=== PATIENT | female | born 1965 | race Hispanic/Latino ===

== ENCOUNTER 2017-01-12 07:24 | Day surgery (SDC) | payer MEDICARE ==
--- NOTE | 2017-01-12 08:34 | Anesthesia Consultation ---
Anesthesia Consult and Med Hx Date of service: 01/12/17 - Airway Anesthetic Teeth Evaluation: Good ROM Head & Neck: Adequate Mental/Hyoid Distance: Adequate Mallampati Class: Class II Intubation Access Assessment: Probably Good - Pulmonary Exam CTA: Yes - Cardiac Exam Cardiac Exam: RRR - Pre-Operative Health Status ASA Pre-Surgery Classification: ASA3 Proposed Anesthetic Plan: MAC - Cardiovascular System Hx Hypertension: Yes - Central Nervous System CVA: No (Cerebral aneurysm clipping) - Gastrointestinal Hx Gastroesophageal Reflux Disease: Yes (food related, no symptoms at present) - Endocrine Hx Renal Disease: Yes (R nephrectomy for cancer) - Other Systems Hx Obesity: Yes (morbid)
--- NOTE | 2017-01-12 08:34 | Anesthesia Day of Surgery ---
Anesthesia Day of Surgery - Day of Surgery Patient Examined: Yes Patient H&P Reviewed: Yes Patient is NPO: Yes
[2017-01-12] MEDS ORDERED: WATER FOR IRRIG STERILE IR ONE (08:48)
[2017-01-12] MEDS ORDERED: NACL 0.9% 1000 ML 1,000 ML IV SCH (09:00)
[2017-01-12] MEDS ORDERED: DIPRIVAN 10 MG/ML IV ONE ×2 (10:35→10:36)
--- NOTE | 2017-01-12 10:42 | Discharge Summary ---
Providers - Providers Date of discharge: 01/12/17 Attending physician: NIHARIKA MORGAN Hospitalization Condition: Good Procedures: egd Disposition: DC-01 TO HOME OR SELFCARE Core Measure Documentation - Palliative Care Palliative Care/ Comfort Measures: Not Applicable - Core Measures Any of the following diagnoses?: none Exam - Physical Exam Narrative exam: unchanged from pre-op exam - Constitutional Vitals: Temp Pulse Resp BP Pulse Ox 97.7 F 71 12 156/98 97 01/12/17 08:51 01/12/17 08:51 01/12/17 08:51 01/12/17 08:51 01/12/17 08:51 Plan Activity: no restrictions Weight Bearing Status: Weight Bear as Tolerated Diet: regular
--- NOTE | 2017-01-12 10:43 | Operative Report ---
Operative Report Operative Report: OPERATIVE REPORT - EGD DATE 01/12/17 SURGERY: Upper endoscopy. SURGEON: Yesy Mcmillan M.D. PRE OP DX: dyspepsia POST OP DX: hiatal hernia TYPE OF ANESTHESIA: MAC. ESTIMATED BLOOD LOSS: None. COMPLICATIONS: None. SPECIMENS REMOVED: None. FINDINGS: 1. Small hiatal hernia. 2. Otherwise, normal esophagus, stomach and first portion of duodenum. INDICATIONS:INDICATION FOR PROCEDURE: Patient is a 51-year-old female with a long history of morbid obesity. She is planned to have a weight loss procedure and is here for preoperative planning EGD. Also looking for any pathology that can explain her symptoms or be contraindications for bariatric surgery. PROCEDURE DETAILS: After consent was reviewed, patient was taken back to the operating room where patient was placed in the left lateral decubitus position and a bite block was placed in the mouth. After a time-out was called, MAC anesthesia was initiated. I then passed the endoscope into her oropharynx, into her esophagus, visualized the entire esophagus, which was all within normal limits. I then visualized the stomach and the first portion of the duodenum and there were no abnormalities I could clearly visualize. I then retroflexed the scope in the stomach and visualized the hiatus and I could see a small hiatal hernia. I then desufflated the stomach and removed the endoscope. Patient tolerated procedure well and was transferred to recovery room in good and stable condition.
--- NOTE | 2017-01-12 11:03 | Post Anesthesia Evaluation ---
- Post Anesthesia Evaluation Patient Participated: Yes Airway Patent: Yes Stable Respiratory Function: Yes Temp > 96.8F: Yes Pain Manageable: Yes Adequeate Hydration: Yes Anesthesia Complications: No Block Receding Appropriately: Not Applicable
[2017-01-12 11:15] VITALS: BP 124/86
== END 2017-01-12 07:25 | disposition home or self-care (01) ==
LOC: GIO 07:24
PROVIDERS: ATTEND Surgery
DX: K44.9 Diaphragmatic hernia without obstruction or gangrene (principal); I10 Essential (primary) hypertension; K21.9 Gastro-esophageal reflux disease without esophagitis; F31.9 Bipolar disorder, unspecified; E11.9 Type 2 diabetes mellitus without complications; E66.01 Morbid (severe) obesity due to excess calories; Z68.39 Body mass index [BMI] 39.0-39.9, adult; Z90.5 Acquired absence of kidney; Z85.528 Personal history of other malignant neoplasm of kidney; Z90.49 Acquired absence of other specified parts of digestive tract; Z98.890 Other specified postprocedural states; Z79.899 Other long term (current) drug therapy
CPT/HCPCS: 43235; J2704; J7030

== ENCOUNTER 2017-01-16 06:21 | Inpatient (IN) | payer MEDICARE ==
[2017-01-16] MEDS ORDERED: ANCEF/STERILE WATER 2 GM/20 ML 2 GM/20 ML SYRINGE IV NR (09:00)
[2017-01-16] MEDS ORDERED: TRANSDERM-SCOP TD SCH (09:00)
[2017-01-16] MEDS ORDERED: LOVENOX SUB-Q NR (09:00)
[2017-01-16] MEDS ORDERED: FLAGYL 500 MG/100 ML 500 MG/100 ML BAG IV NR (09:00)
[2017-01-16] MEDS ORDERED: REGLAN IV PRN (10:41)
[2017-01-16] MEDS ORDERED: NORCO PO PRN (10:41)
[2017-01-16] MEDS ORDERED: MORPHINE IV PRN (10:41)
[2017-01-16] MEDS ORDERED: APRESOLINE IV PRN (10:41)
[2017-01-16] MEDS ORDERED: ZOFRAN IV PRN ×2 (10:41→11:08)
[2017-01-16] MEDS ORDERED: ANCEF/NS 1 GM/50 ML 1 GM/50 ML BAG IV SCH (11:00)
[2017-01-16 11:02] LABS: Bilirubin,Urine NEG (Negative); Blood,Urine NEG (Negative); Ketones,Urine NEG (Negative); Leukocyte Esterase,Urine NEG (Negative); Mucus,Urine FEW /HPF; Nitrite,Urine NEG (Negative); Protein,Urine <15 mg/dL mg/dL (Negative); Urobilinogen,Urine < 2.0 mg/dL (<2.0)
--- NOTE | 2017-01-16 11:07 | Anesthesia Consultation ---
Anesthesia Consult and Med Hx Date of service: 01/16/17 - Airway Anesthetic Teeth Evaluation: Good, Partials Mental/Hyoid Distance: Adequate Mallampati Class: Class III Intubation Access Assessment: Possibly Difficult - Pulmonary Exam CTA: Yes - Cardiac Exam Cardiac Exam: RRR - Pre-Operative Health Status ASA Pre-Surgery Classification: ASA3 Proposed Anesthetic Plan: General - Pulmonary Hx Sleep Apnea: Yes (cpap) - Cardiovascular System Hx Hypertension: Yes - Central Nervous System CVA: No (Cerebral aneurysm clipping) Hx Psychiatric Problems: Yes - Gastrointestinal Hx Gastroesophageal Reflux Disease: Yes (food related, no symptoms at present) - Endocrine Hx Renal Disease: Yes (R nephrectomy for cancer) - Other Systems Hx Cancer: Yes Hx Obesity: Yes (morbid)
[2017-01-16] MEDS ORDERED: PERCOCET 5/325 PO PRN (11:08)
[2017-01-16] MEDS ORDERED: DILAUDID IV PRN (11:08)
--- NOTE | 2017-01-16 11:08 | Anesthesia Day of Surgery ---
Anesthesia Day of Surgery - Day of Surgery Patient Examined: Yes Patient H&P Reviewed: Yes Patient is NPO: Yes
[2017-01-16 11:42] LABS: Basophils % (Auto) 0.9 % (0.0-1.8); Eosinophils % (Auto) 1.5 % (0.0-4.3); Hematocrit 39.4 % (30.3-42.9); Hemoglobin 13.1 gm/dl (10.1-14.3); Mean Corpuscular HGB Conc 33 % (30-34); Mean Corpuscular Hemoglobin 27 pg (28-32); Mean Corpuscular Volume 82 fl (79-97); Platelet Count 274 K/mm3 (140-440); Red Blood Count 4.84 M/mm3 (3.65-5.03); Red Cell Distribution Width 14.1 % (13.2-15.2); White Blood Count 6.2 K/mm3 (4.5-11.0)
[2017-01-16] MEDS: LACTATED RINGERS 1,000 ML IV SCH ×2 (11:43→20:42)
[2017-01-16] MEDS ORDERED: VERSED IV NR (12:00)
[2017-01-16] MEDS ORDERED: PEPCID PO NR (12:00)
[2017-01-16] MEDS ORDERED: PEPCID IV SCH ×2 (12:00→22:00)
[2017-01-16 12:03] LABS: Calcium 9.5 mg/dL (8.4-10.2); Chloride 98.4 mmol/L (98-107); Potassium 4.2 mmol/L (3.6-5.0)
[2017-01-16] MEDS ORDERED: DILAUDID IV ONE (13:05)
[2017-01-16] MEDS ORDERED: XYLOCAINE 1% 20 mL ONE (13:24)
[2017-01-16] MEDS ORDERED: MARCAINE-EPI/PF 0.5%-1:200,000 INFILTRATI ONE (13:25)
[2017-01-16] MEDS ORDERED: XYLOCAINE 1% 20 mL INFILTRATI ONE (13:46)
[2017-01-16] MEDS ORDERED: MARCAINE-EPI 0.5%-1:200,000 INFILTRATI ONE (13:46)
[2017-01-16] MEDS ORDERED: [UNRECOGNIZED DRUG - OTHER] TP ONE (13:46)
[2017-01-16] MEDS ORDERED: NACL 0.9% IR ONE ×2 (13:46)
[2017-01-16] MEDS ORDERED: SUBLIMAZE ONE (13:51)
[2017-01-16] MEDS ORDERED: XYLOCAINE MPF 2% ONE (13:51)
[2017-01-16] MEDS ORDERED: DIPRIVAN 10 MG/ML IV ONE (13:51)
[2017-01-16] MEDS ORDERED: ZEMURON IV ONE (13:51)
[2017-01-16] MEDS ORDERED: FLAGYL 500 MG/100 ML 500 MG/100 ML BAG IV SCH (14:00)
[2017-01-16] MEDS ORDERED: DECADRON ONE (14:55)
[2017-01-16] MEDS ORDERED: ROBINUL ONE (14:55)
[2017-01-16] MEDS ORDERED: NEOSTIGMINE ONE (14:55)
[2017-01-16] MEDS ORDERED: NEO SYNEPHRINE ONE (14:55)
[2017-01-16] MEDS ORDERED: ZOFRAN ONE (14:55)
[2017-01-16] MEDS ORDERED: NACL 0.9% 100 ML ONE (14:55)
[2017-01-16] MEDS ORDERED: DILAUDID ONE (15:17)
[2017-01-16] MEDS ORDERED: LACTATED RINGERS 1,000 ML ONE (15:24)
[2017-01-16] MEDS: TORADOL IV SCH ×3 (16:08→23:56)
--- NOTE | 2017-01-16 18:37 | Post Anesthesia Evaluation ---
- Post Anesthesia Evaluation Patient Participated: Yes Airway Patent: Yes Stable Respiratory Function: Yes Temp > 96.8F: Yes Pain Manageable: Yes Adequeate Hydration: Yes Anesthesia Complications: No
[2017-01-16] MEDS: ZOLOFT PO SCH (18:41)
[2017-01-16] MEDS: DILAUDID IV PRN (20:40)
[2017-01-16] MEDS: MYLICON PO PRN (20:41)
[2017-01-17] MEDS: DILAUDID IV PRN ×2 (00:01→03:50)
[2017-01-17] MEDS: TORADOL IV SCH ×2 (05:03→12:14)
[2017-01-17 05:09] LABS: Basophils % (Auto) 0.4 % (0.0-1.8); Hematocrit 37.4 % (30.3-42.9); Hemoglobin 12.4 gm/dl (10.1-14.3); Mean Corpuscular HGB Conc 33 % (30-34); Mean Corpuscular Hemoglobin 28 pg (28-32); Mean Corpuscular Volume 83 fl (79-97); Platelet Count 247 K/mm3 (140-440); Red Blood Count 4.48 M/mm3 (3.65-5.03); Red Cell Distribution Width 14.5 % (13.2-15.2); White Blood Count 7.1 K/mm3 (4.5-11.0)
[2017-01-17 05:26] LABS: Albumin 3.7 g/dL (3.9-5); Albumin/Globulin Ratio 1.2 %; Bilirubin,Total 0.3 mg/dL (0.1-1.2); Calcium 8.5 mg/dL (8.4-10.2); Potassium 5.1 mmol/L (3.6-5.0); Total Protein 6.8 g/dL (6.3-8.2)
[2017-01-17] MEDS: LACTATED RINGERS 1,000 ML IV SCH (08:44)
[2017-01-17] MEDS: ZOLOFT PO SCH (09:35)
--- NOTE | 2017-01-17 09:59 | Progress Note ---
Subjective Date of service: 01/17/17 Principal diagnosis: Morbid obesity Interval history: Patient seen POD 1, comfortable, ambulating , satisfied with anesthesia. Objective - Constitutional Vitals: Vital Signs - 12hr 01/17/17 01/17/17 01/17/17 00:00 00:05 04:01 Temperature 98.2 F 98.2 F Pulse Rate 89 89 98 H Respiratory 18 18 Rate Blood Pressure 105/60 Blood Pressure 112/75 [Left] O2 Sat by Pulse 100 92 Oximetry 01/17/17 01/17/17 01/17/17 04:13 04:16 07:04 Temperature 98.5 F 98.5 F Pulse Rate 72 72 86 Respiratory 18 Rate Blood Pressure Blood Pressure 102/57 102/57 [Left] O2 Sat by Pulse 96 96 95 Oximetry 01/17/17 01/17/17 01/17/17 07:47 08:43 09:35 Temperature 98.2 F Pulse Rate 84 66 Respiratory 18 20 Rate Blood Pressure 123/74 Blood Pressure 103/61 [Left] O2 Sat by Pulse 95 Oximetry - Labs CBC & Chem 7: 01/17/17 03:21 01/17/17 03:21 Labs: Abnormal lab results 01/16/17 01/17/17 01/17/17 Range/Units 11:25 03:21 03:21 MCH 27 L (28-32) pg Lymph % (Auto) 35.8 H 9.5 L (13.4-35.0) % Steele % (Auto) 7.4 H (0.0-7.3) % Lymph # 0.7 L (1.2-5.4) K/mm3 Seg Neutrophils % 88.0 H (40.0-70.0) % Potassium 5.1 H D (3.6-5.0) mmol/L Carbon Dioxide 20 L (22-30) mmol/L BUN 20 H (7-17) mg/dL Glucose 117 H (65-100) mg/dL Albumin 3.7 L (3.9-5) g/dL
[2017-01-17] MEDS ORDERED: IMDUR PO SCH (10:00)
[2017-01-17] MEDS ORDERED: LOVENOX SUB-Q SCH (10:00)
[2017-01-17 11:29] VITALS: BP 102/63
[2017-01-17] MEDS: MYLICON PO PRN (12:21)
--- NOTE | 2017-01-17 13:42 | Admit Criteria Form ---
Admission Criteria Documentation: AMBULATORY SURGERY EXCEPTION CRITERIA Ambulatory Surgery Exception Criteria ( Place 'X' for any and all applicable criteria): Surgery or procedure performed on ambulatory basis may require inpatient stay for[A] ANY ONE of the following(1)(2)(3)(4)(5)(6)(7)(8)(9): [X] I. A preoperative situation, condition, or finding that warrants inpatient stay as indicated by ANY ONE of the following: [] a) Inpatient care needed because of severity of a disease or condition rather than the surgery (eg, severe cardiac or respiratory disease, severe infection) (15) (16 ) (17) (18) [] b) Emergent procedure (eg, angioplasty for acute ischemia)(19) [] c) Complex surgical approach or situation as indicated by ANY ONE of the following(3): [] i) Open approach needed instead of usual endoscopic, transcatheter, or other less invasive procedure [] ii) Difficult approach because of previous operation [] iii) Airway monitoring required after open neck procedures(20)(21) [] iv) Large mass requiring unusually extensive dissection [] v) Additional complicating feature requiring inpatient care (eg, drain management)(22(23): [X] d) Major surgery in a pt with high anesthetic risk as indicated by ANY ONE of the following (2)(3)(5)(7)(8): [X] i) ASA risk class III or higher (severe systemic disease impairing function) [D] [] ii) Advanced age (eg, older than 85 years)(14)(24) [] iii) Symptomatic heart failure(25) [] iv) Symptomatic asthma or COPD(8)(21) [] v) Morbid obesity with hemodynamic or respiratory problems(20)( 21)(26)(27) [] vi) Obstructive sleep apnea(20)(21) [] vii) Former premature infants who are younger than 60 weeks [] viii) High risk for severe postoperative abnormalities (eg, severe postoperative hypocalcemia after parathyroidectomy for severe hyperparathyroidism)(27)( 28) [] ix) Unstable angina(25) [] e) Drug-related risk requiring inpatient stay as indicated by ANY ONE of the following(5)(10)(14)(32)(33) [] i) Procedure requires discontinuing drugs or other therapy (eg , antiarrhythmic medication, antiseizure medication), which necessitates inpatient observation or treatment.(18)(31) [] ii) Major surgery and high risk drug use as indicated by ANY ONE of the following: [] 1) Active abuse of cocaine or similar drug [] 2) Monoamine oxidase inhibitor use [] 3) Other drug identified as posing risk [] f) Inadequate outpatient care situation as indicated by ANY ONE of the following(5)(10)(14)(32)(33) [] i) Patient lives remote from medical facility and procedure has urgent complication potential, and temporary nearby residence cannot be arranged [] ii) Patient will have postprocedure incapacitation and inadequate assistance at home, or alternative level of care cannot be arranged. [] iii) Patient will have long general anesthesia or procedure side effect resolution time, and competent person to stay with patient on first postoperative night at home or alternative level of care cannot be arranged. []iv) Other inadequate outpatient situation that cannot be handled by other means [] II. A perioperative event, condition, or finding that warrants inpatient stay as indicated by ANY ONE of the following (1)(2)(3): [] a) Inadequate physiologic recovery: cardiovascular, respiratory, or hemodynamic status not normal or near preoperative baseline(18) [] b) Hemodynamic instability [] c) Patient not alert with near normal or baseline mental status [] d) Temperature not normal or as expected and not appropriate for outpatient treatment of condition [] e) Ambulatory or appropriate activity level status not yet achieved post procedure [E](34)(35)(36) [] f) Operative site not appropriate (eg, unexpected or excessive drainage or bleeding) [] g) Postoperative effects not resolved or adequately managed (eg, significant pain or vomiting not appropriate for outpatient or next level of care)(10)(12) [] h) Complicating features requiring inpatient care as indicated by ANY ONE of the following(37): [] i) Severe complications of procedure (eg, bowel injury, airway compromise, vascular injury,severe hemorrhage) [] ii) Extensive (eg, dissection far beyond usual scope of procedure ) or prolonged (eg, 120 minutes beyond usual) surgery needed requiring inpatient postoperative care [] iii) Conversion to an open or complex procedure that requires inpatient care (eg, open vs laparoscopic cholecystectomy, abdominal vs vaginal hysterectomy)(38) [] iv) Comorbid condition or test result identified during or post procedure that requires inpatient care (7) [] v) Malignant hyperthermia(30) [] vi) Other complicating feature requiring inpatient care(22)(23) Inpatient stay may be needed until ALL of the following are present (1)(2)(3)(4) (5)(6)(10)(14)(33)(40): []a) Physiologic recovery: cardiovascular, respiratory, and hemodynamic status normal or near preoperative baseline []b) Hemodynamic stability []c) Patient alert, with near normal or baseline mental status []d) Temperature appropriate: patient afebrile or temperature appropriate for outpt treatment of condition []e) Activity level appropriate: ambulatory or appropriate activity level post procedure []f) Operative site appropriate as indicated by ALL of the following: []i) Site dry or with expected drainage []ii) Any blood noted is as expected for procedure. []g) Postoperative effects resolved or managed as indicated by ALL of the following: []i) Pain management appropriate for outpatient (or next level of) care(10) []ii) Minimal nausea and vomiting: if present, successfully treated with oral medication(12) []iii) Headache, dizziness, or drowsiness (if present) are mild. []h) Voiding status acceptable as indicated by ANY ONE of the following: []i) Voiding spontaneously []ii) No voiding but instructions given for follow-up in 6 to 8 hours []iii) Urinary catheter in place, and instructions given for follow-up []i) Complicating features requiring inpatient care manageable at a lower level of care(37) []j) Comorbid conditions manageable at a lower level of care(37) The original [employer] content created by [employer] has been revised. The portions of the content which have been revised are identified through the use of italic text or in bold, and [employer] [facility] [employer] has neither reviewed nor approved the modified material. All other unmodified content is copyright [employer]. Please see references footnoted in the original [employer] edition 2016 Admission Criteria Met: Yes
--- NOTE | 2017-01-17 13:50 | Operative Report ---
Operative Report Operative Report: Operative Report DATE OF PROCEDURE: 01/16/17 PREOPERATIVE DIAGNOSES: Morbid obesity, hiatal hernia POSTOPERATIVE DIAGNOSES: 1.same as pre-op SURGEON: Yesy Mcmillan M.D. BLENDER HELPER: Rory Rodriguez CSA PROCEDURE: 1. laparoscopic sleeve gastrectomy 2. laparoscopic hiatal hernia repair ANESTHESIA: General. ESTIMATED BLOOD LOSS: <5 mL. COMPLICATIONS: None. SPECIMEN: Partial gastrectomy. FINDINGS: 1. 3cm hiatal hernia INDICATION FOR PROCEDURE: Patient is a 51 old female with a long history of morbid obesity. She has tried multiple efforts at weight loss without long-term success. She is here today for sleeve gastrectomy. PROCEDURE IN DETAIL: After consent was reviewed, patient was taken back to the operating room, where patient was placed supine on the bed with both arms out. The patient's legs were doubly strapped to the bed. Patient had a foot board in place. Patient had a body warmer placed by anesthesia. Patient was then prepped and draped in normal sterile surgical fashion. After a time-out was called, I made a stab incision in the umbilicus and placed a Veress needle through this incision and insufflated the abdomen to 18 mmHg pressure. I then counted down a handsbreadth below the xiphoid process in the midline and slightly left lateral injected local anesthetic and made about 1.5 cm transverse incision. I then used a 5-mm Optiview trocar to enter into the abdomen. I then placed a 45- degree scope through this port and inspected the abdomen. There was no injury on entry of the abdomen. I then placed two 5-mm ports in the right upper quadrant, one along the anterior axillary line and 1 subxiphoid below the costovertebral angle. I then placed a 15-mm port about a handsbreadth left lateral and inferior to my anterior axillary port. I then placed left upper quadrant port along the anterior axillary line in a similar fashion. I then placed the liver retractor through the subxiphoid port and placed the patient in full reverse Trendelenburg. The right and left crura were skeletonized accentuating a 3cm hiatal hernia. The gastro-esophageal junction and 1-2 cm of proximal stomach were above the level of diaphragm. An anterior cruraplasty was perfromed with two figure-of-8 stitch using surgidac suture to reapproximate the crura, after the stomach and 2cm of distal esophagus were resting comfortably in the abdominal cavity I then identified the pylorus and then counted off 6cm from the pylorus. I then used a LigaSure cutting device to enter into the lesser sac. At that point and then I took down the short gastrics all the way up to the left anuradha. Then I had anesthesia pass down a 36-Armenian bougie along the lesser curvature of the stomach. I made sure everything else was out of the abdomen except the bougie. I then created my gastric sleeve using a 60-mm laparoscopic stapler. . The sleeve looked good without any twisting or torsion. I then had anesthesia to remove the bougie. Hemostasis was obtained along the staple line. I then used Tiseel along the entirety of the staple line and some on the liver. I then removed liver grasper and took it off the field. I then removed the stomach through the 15-mm port. I then closed that fascia with a #1 PDS in a [id number] fashion using a Isauro-Jacob. I then desufflated the abdomen and then removed all port sites. I then closed the incisions with 4-0 Monocryl in subcuticular fashion. I then dressed the wounds with Dermabond. Patient tolerated the procedure well and was transferred to recovery room in good and stable condition.
--- NOTE | 2017-01-17 13:56 | Discharge Summary ---
Providers - Providers Date of Admission: 01/16/17 06:21 Date of discharge: 01/17/17 Attending physician: NIHARIKA MORGAN Hospitalization Condition: Good Procedures: Laparoscopic sleeve gastrectomy with hiatal hernia repair Hospital course: 51 y.o. F admitted to the hospital 01/16/17 for laparoscopic sleeve gastrectomy and hiatal hernia repair. The patient tolerated the procedure well. She tolerated clears on POD 1. She was ambulating and her pain was controlled prior to discharge. Disposition: DC-01 TO HOME OR SELFCARE Core Measure Documentation - Palliative Care Palliative Care/ Comfort Measures: Not Applicable - Core Measures Any of the following diagnoses?: none Exam - Physical Exam Narrative exam: abd: obese, incisions cdi.tender at incision sites. no rebound no guarding. - Constitutional Vitals: Temp Pulse Resp BP Pulse Ox 97.8 F 72 20 102/63 94 01/17/17 11:26 01/17/17 11:26 01/17/17 12:14 01/17/17 11:26 01/17/17 11:26 Plan Activity: other (no lifting >15lbs for 6 weeks ) Diet: clear liquids (sugar free clears ) Wound: other (september shower Monday) Additional Instructions: follow up for wound check in 24-48hrs. Follow up with: [facility] [Other] - 7 Days
== END 2017-01-17 14:08 | disposition home or self-care (01) | DRG 621 ==
LOC: 3A 06:21 → 3B-SURG 17:15
PROVIDERS: ADMIT Surgery; ATTEND Surgery
PROC: 0DB64Z3 Excision of Stomach, Percutaneous Endoscopic Approach, Vertical (ICD-10-PCS; principal; 2017-01-16)
PROC: 0BQS4ZZ (ICD-10-PCS; 2017-01-16)
PROC: 0BQR4ZZ (ICD-10-PCS; 2017-01-16)
DX: E66.01 Morbid (severe) obesity due to excess calories (principal); K44.9 Diaphragmatic hernia without obstruction or gangrene; F31.9 Bipolar disorder, unspecified; E11.9 Type 2 diabetes mellitus without complications; K21.9 Gastro-esophageal reflux disease without esophagitis; E78.5 Hyperlipidemia, unspecified; K30 Functional dyspepsia; Z82.49 Family history of ischemic heart disease and other diseases of the circulatory system; Z68.39 Body mass index [BMI] 39.0-39.9, adult; Z90.710 Acquired absence of both cervix and uterus
CPT/HCPCS: 36415; 80048; 80053; 81001; 85025; 88307; 88342; 94760; A4217; C9250; J0690; J1100; J1170; J1650; J1885; J2250; J2270; J2370; J2405; J2704; J2710; J3010; J7120